=== PATIENT | male | born 1985 | race Caucasian/White ===

== ENCOUNTER 2018-11-26 20:08 | Emergency (ER) | payer SELFPAY ==
[~2018-11-26] VITALS: Ht 195.6 cm; Wt 97.5 kg
[2018-11-26 20:21] VITALS: BP 147/58
--- NOTE | 2018-11-26 20:25 | NUR ---
PT TO LOBBY, W/ FAMILY.
--- NOTE | 2018-11-26 20:35 | NUR ---
CALLED PT NAME , NO ANSWER IN LOBBY
--- NOTE | 2018-11-26 20:45 | NUR ---
NO ANSWER WHEN CALLED IN ER LOBBY AND OUTSIDE.
--- NOTE | 2018-11-26 21:00 | NUR ---
NO ANSWER AGAIN IN LOBBY, PT NOT PRESENT, PATIENT LEFT WITHOUT BEING SEEN BY DR. VALLEJO. NO FURTHER CARE PROVIDED FOR PATIENT.
== END 2018-11-26 20:35 | disposition left against medical advice (07) ==
LOC: MED 20:08
DX: S60.512A Abrasion of left hand, initial encounter (principal); S60.511A Abrasion of right hand, initial encounter; S30.810A Abrasion of lower back and pelvis, initial encounter; Z53.21 Procedure and treatment not carried out due to patient leaving prior to being seen by health care provider; W25.XXXA Contact with sharp glass, initial encounter; Y93.89 Activity, other specified; Y92.89 Other specified places as the place of occurrence of the external cause; Y99.8 Other external cause status